=== PATIENT | female | born 1990 | race Caucasian/White ===

== ENCOUNTER 2017-12-04 21:53 | Emergency (ER) | payer MEDICAID ==
[~2017-12-04] VITALS: Ht 160 cm; Wt 86.4 kg
[~2017-12-04 21:53] MED LIST: AMOXICILLIN 8751 TAB PO; BACTROBAN 22GM22 GM TP; CATAPRES 0.1MG0.1 MG PO; CELEXA40 MG PO; DOXYCYCLINE 10100 MG PO; FLAGYL500 MG PO; LORTAB 5/500 501 TAB PO; MACROBID 1100 MG/CAP PO; MOTRIN 800800 MG/TAB PO; NO HOME MEDICATIONS; NORCO 325 MG-51 TAB PO; ORTHO TRI-CYCLE1 TA1 PO; PERCOCET 325 MG1 TA2 PO; PRENATAL MVI; PRENATAL1 TA1 PO; RITALIN 20M20 MG/TAB PO; VENTOLIN0.09 MG IH; ZITHROMAX 250M250 MG PO; ZOFRAN 4MG T4 MG/TAB PO; ZOFRAN ODT4 MG PO; [UNRECOGNIZED DRUG - OTHER]
[2017-12-04 21:57] VITALS: BP 131/72; TEMP 98.8
[2017-12-04] MEDS ORDERED: ATARAX 25MG25 MG/TAB PO (21:59)
[2017-12-04] MEDS ORDERED: AMOXICILLIN 50500 MG PO (22:30)
[2017-12-04 22:39] VITALS: PULSE 96
== END 2017-12-04 22:51 | disposition home or self-care (01) ==
LOC: COL.ER 21:53
DX: O99.612 Diseases of the digestive system complicating pregnancy, second trimester (principal); K04.7 Periapical abscess without sinus; O99.342 Other mental disorders complicating pregnancy, second trimester; F32.9 Major depressive disorder, single episode, unspecified; F41.9 Anxiety disorder, unspecified; O99.322 Drug use complicating pregnancy, second trimester; F12.90 Cannabis use, unspecified, uncomplicated; Z3A.17 17 weeks gestation of pregnancy

== ENCOUNTER 2018-05-20 11:03 | Inpatient (IN) | payer SELFPAY ==
[~2018-05-20] VITALS: Ht 160 cm; Wt 104.5 kg
[2018-05-20] VITALS (23 sets, daily range): BP systolic 114–152; BP diastolic 58–95; PULSE 66–101; TEMP 98.2–99
[~2018-05-20 11:03] MED LIST changes: +AMOXICILLIN 50500 MG PO; +ATARAX 25MG25 MG/TAB PO
[2018-05-20 12:17] LABS: BASO % 0.2 % (0.0-2.0); EOS # 0.1 (0.0-0.7); GRAN # 7.5 (1.4-6.5); GRAN % 67.8 % (42.2-75.2); HEMATOCRIT 38.9 % (37.0-47.0); LYMPH # 2.9 (1.2-3.4); LYMPH % 26.1 % (20.0-51.0); MEAN CELL VOLUME 89 fl (80.0-100.0); MEAN CORPUSCULAR HEMOGLOBIN 30 pg (27.0-31.0); MEAN CORPUSCULAR HGB CONC 33 g/dl (33.0-37.0); MEAN PLATELET VOLUME 12.5 fl (7.4-10.4); MONO # 0.4 (0.1-0.6); PLATELET COUNT 193 K/mm3 (130-400); RED BLOOD COUNT 4.37 M/mm3 (4.10-5.30); REDCELL DISTRIBUTION WIDTH-CV 13.3 % (11.5-14.5)
[2018-05-21 03:00] VITALS: BP 116/59; PULSE 72; TEMP 98.6
[2018-05-21 06:55] VITALS: BP 124/68; PULSE 76; TEMP 98
[2018-05-21] MEDS ORDERED: PERCOCET 325 MG1 TA2 PO (11:51)
[2018-05-21] MEDS ORDERED: MOTRIN 600600 MG/TAB PO (11:51)
[2018-05-21 16:03] VITALS: BP 124/68; PULSE 76; TEMP 98.1
== END 2018-05-21 18:00 | disposition home or self-care (01) | DRG 775 ==
LOC: LDRO 11:03 → LDR 11:15 → OB 18:30
PROVIDERS: Obstetrics & Gynecology
PROC: 10E0XZZ Delivery of Products of Conception, External Approach (ICD-10-PCS; principal; 2018-05-20)
DX: O70.0 First degree perineal laceration during delivery (principal); O71.82 Other specified trauma to perineum and vulva; Z3A.41 41 weeks gestation of pregnancy; Z37.0 Single live birth; O99.344 Other mental disorders complicating childbirth; F41.8 Other specified anxiety disorders; F42.9 Obsessive-compulsive disorder, unspecified; F90.1 Attention-deficit hyperactivity disorder, predominantly hyperactive type
CPT/HCPCS: J2210; J2590; J7120